=== PATIENT | male | born 1955 | race African-American/Black ===

== ENCOUNTER 2016-11-19 23:58 | Emergency (ER) | payer MEDICARE, MEDICAID ==
[~2016-11-19] VITALS: Ht 182.9 cm; Wt 68.0 kg
[~2016-11-19 23:58] MED LIST: AMLO10TA80 PO; ASPI-1160 PO
[2016-11-20] MEDS ORDERED: BACITRACIN ZINC OINT UDPKT TOP ONE (00:30)
[2016-11-20] MEDS ORDERED: MORPHINE SULFATE 10 MG/ML CPJ IM ONE (00:30)
[2016-11-20] MEDS ORDERED: CEPHALEXIN 500MG CAPSULE PO ONE (00:30)
[2016-11-20 06:00] VITALS: BP 141/84
== END 2016-11-20 07:10 | disposition home or self-care (01) ==
LOC: ER 23:58
DX: T24.231A Burn of second degree of right lower leg, initial encounter (principal); I10 Essential (primary) hypertension; E78.00 Pure hypercholesterolemia, unspecified; F31.9 Bipolar disorder, unspecified; F17.210 Nicotine dependence, cigarettes, uncomplicated; Z98.890 Other specified postprocedural states; T31.0 Burns involving less than 10% of body surface; X16.XXXA Contact with hot heating appliances, radiators and pipes, initial encounter; Y93.89 Activity, other specified; Y92.018 Other place in single-family (private) house as the place of occurrence of the external cause
CPT/HCPCS: 96372; 99283; J2270

== ENCOUNTER 2016-11-20 08:10 | Emergency (ER) | payer MEDICARE, MEDICAID ==
[~2016-11-20] VITALS: Ht 167.6 cm; Wt 66.0 kg
[2016-11-20 08:16] VITALS: BP 138/76
[2016-11-20] MEDS ORDERED: BACITRACIN ZINC OINT UDPKT TOP ONE (09:00)
== END 2016-11-20 11:48 | disposition home or self-care (01) ==
LOC: ER 08:38
DX: T81.89XD Other complications of procedures, not elsewhere classified, subsequent encounter (principal); Z88.8 Allergy status to other drugs, medicaments and biological substances; Z79.82 Long term (current) use of aspirin; F31.9 Bipolar disorder, unspecified; E78.00 Pure hypercholesterolemia, unspecified; I10 Essential (primary) hypertension; F17.200 Nicotine dependence, unspecified, uncomplicated; X58.XXXD Exposure to other specified factors, subsequent encounter
CPT/HCPCS: 99282